=== PATIENT | male | born 1970 | race Caucasian/White ===

== ENCOUNTER 2016-11-06 12:29 | Emergency (ER) | payer OTHER ==
[2016-11-06 12:33] VITALS: RESP 16
[2016-11-06] MEDS ORDERED: KETOROLAC 30 MG/ML 1 ML VIAL IVP STA (13:48)
[2016-11-06] MEDS ORDERED: SODIUM CHLORIDE 0.9% 1,000 ML IV ONE (13:48)
[2016-11-06] MEDS ORDERED: MORPHINE SULFATE 4 MG/ML SYRINGE IVP STA (13:48)
[2016-11-06] MEDS ORDERED: ONDANSETRON 4 MG/2 ML VIAL IVP STA (13:48)
[2016-11-06 14:32] LABS: Basophils # (A) 0.2 k/uL (0-0.2); Basophils % (A) 1 %; CH 28.4; CHCM 32.8; Eosinophils # (A) 0.1 k/uL (0-0.7); Eosinophils % (A) 1 %; HCT 43.9 % (39.0-53.0); HDW 2.52; HGB 14.5 gm/dL (13.0-17.5); Luc # (Auto) 0.46; Luc % (Auto) 3; Lymphocytes # (A) 2.3 k/uL (1.0-4.8); Lymphocytes % (A) 14 %; MCH 28.7 pg (25.0-35.0); MCHC 32.9 g/dL (31.0-37.0); MCV 87.2 fL (80.0-100.0); Mean Platelet Volume 6.4; Monocytes # (A) 1.2 k/uL (0-1.0); Monocytes % (A) 7 %; Neutrophils # (A) 12.4 k/uL (1.3-7.7); Neutrophils % (A) 75 %; RBC 5.04 m/uL (4.30-5.90); RDW 13.7 % (11.5-15.5); WBC 16.6 k/uL (3.8-10.6); WBC (Perox) 16.12
[2016-11-06 14:40] LABS: Anion Gap 11 mmol/L; Blood Urea Nitrogen 11 mg/dL (9-20); Calcium 9.7 mg/dL (8.4-10.2); Carbon Dioxide 26 mmol/L (22-30); Chloride 103 mmol/L (98-107); Glucose 95 mg/dL (74-99); Non-African American GFR(MDRD) >60 (>60 ml/min/1.73 sqM); Potassium 4.7 mmol/L (3.5-5.1); Sodium 140 mmol/L (137-145)
--- NOTE | 2016-11-06 14:42 | CT ---
EXAMINATION TYPE: CT abdomen pelvis wo con DATE OF EXAM: 11/06/2016 2:31 PM COMPARISON: NONE HISTORY: Right flank pain, history of kidney stones CT DLP: 1215 mGycm Automated exposure control for dose reduction was used. TECHNIQUE: Helical acquisition of images from the lung bases through the pelvis. FINDINGS: LUNG BASES: No significant abnormality is appreciated. AORTA: No significant abnormality is appreciated. LIVER/GB: No significant abnormality is appreciated. PANCREAS: No significant abnormality is seen. SPLEEN: No significant abnormality is seen. ADRENALS: No significant abnormality is seen. KIDNEYS: The right kidney shows hydronephrosis, there is perinephric stranding. Mild right-sided hydr oureter is present. At the mid ureter there is a 2 to 3 mm calculus present. Left kidney is within no rmal limits. REPRODUCTIVE ORGANS: Some prostatic calcifications are present. URINARY BLADDER: Contracted BOWEL: Diverticular changes associated with the sigmoid colon. The appendix is normal. No bowel obst ruction. FREE AIR: No Free Air is visible. ASCITES: None visible. PELVIC ADENOPATHY: None visualized. RETROPERITONEAL ADENOPATHY: No Retroperitoneal Adenopathy visible. OSSEOUS STRUCTURES: No significant abnormality is seen. IMPRESSION: MID URETERAL CALCULUS ON THE RIGHT WITH HYDRONEPHROSIS. DIVERTICULOSIS. NONCONTRAST EXAM COULD LIMIT SENSITIVITY.
[2016-11-06 14:49] LABS: Appearance,Urine Clear (Clear); Bilirubin,Urine Negative (Negative); Calcium Oxalate Crystals,Urine Rare /hpf; Glucose,Urine (UA) Negative (Negative); Ketones,Urine Negative (Negative); Leukocyte Esterase,Urine Negative (Negative); Mucus,Urine Occasional /hpf; Nitrite,Urine Negative (Negative); Particle Count 2092; Protein,Urine Negative (Negative); RBC,Urine >182 /hpf (0-5); Specific Gravity,Urine 1.011 (1.001-1.035); UA Billing (MACRO vs. MICRO) MICRO; Urobilinogen,Urine <2.0 mg/dL (<2.0); WBC,Urine 1 /hpf (0-5)
--- NOTE | 2016-11-06 15:18 | ED ---
General Adult HPI - General Chief complaint: Back Pain/Injury Stated complaint: kidney Stone Time Seen by Provider: 11/06/16 13:37 Source: patient, family, RN notes reviewed Mode of arrival: ambulatory Limitations: no limitations - History of Present Illness Initial comments: 46-year-old male with history of renal stones presenting for right flank pain. Patient states pain began earlier today with sudden onset. He states the pain seems to be radiating from his right flank down to his right groin. States he last had a kidney stone about 11 or 12 years ago. He did require stenting and lithotripsy at that time. He denies any fevers or chills. He denies any other abdominal pain. He denies any nausea or vomiting. He denies dysuria or hematuria at this time. Onset/Timin -: hour(s) Quality: stabbing Consistency: constant Improves with: none Worsens with: none Treatments Prior to Arrival: none - Related Data Home Medications Medication Instructions Recorded Confirmed Doxylamine Succinate [Unisom] 25 mg PO DAILY PRN 11/06/16 11/06/16 Ibuprofen [Motrin] 600 mg PO DAILY PRN 11/06/16 11/06/16 Multivitamins, Thera [Multivitamin 1 tab PO DAILY 11/06/16 11/06/16 (formulary)] Previous Rx's Medication Instructions Recorded Ciprofloxacin HCl [Cipro] 500 mg PO Q12HR #6 tablet 11/06/16 HYDROcodone/APAP 5-325MG [[place]win 1 tab PO Q6HR PRN #12 tab 11/06/16 5-325] Ibuprofen [Motrin] 800 mg PO Q8HR PRN #21 tab 11/06/16 Ondansetron Odt [Zofran Odt] 4 mg PO Q8HR PRN #12 tab 11/06/16 Tamsulosin HCl [Flomax] 0.4 mg PO DAILY #7 cap.er.24h 11/06/16 Allergies Allergy/AdvReac Type Severity Reaction Status Date / Time latex Allergy Rash/Hives Verified 11/06/16 14:02 Review of Systems ROS Statement: Those systems with pertinent positive or pertinent negative responses have been documented in the HPI. ROS Other: All systems not noted in ROS Statement are negative. Past Medical History Additional Past Medical History / Comment(s): kidney stones History of Any Multi-Drug Resistant Organisms: None Reported Additional Past Surgical History / Comment(s): lithotripsy Past Psychological History: No Psychological Hx Reported Smoking Status: Never smoker Past Alcohol Use History: Occasional Past Drug Use History: None Reported General Exam - General Exam Comments Initial Comments: General: Awake and Alert. No acute distress. Does not appear acutely ill. Eyes: LISA, EOM intact. No nystagmus. No scleral icterus. HENT: Atraumatic, normocephalic. Mucous membranes moist. Trachea midline. Neck: The neck is supple, there is no tenderness or JVD. Cardiovascular: Regular rate and rhythm. No murmur, rub, or gallop is appreciated. Distal pulses intact. Respiratory: Lungs are clear to auscultation bilaterally. No wheezes, rales, rhonchi. No respiratory distress. Gastrointestinal: Soft, Nontender. No rebound or guarding. Non-distended. No masses or organomegaly noted. Right CVA tenderness. Musculoskeletal: No tenderness. Normal ROM. No gross deformity. No strength deficits. Neurological: A&Ox3. CN II-XII grossly intact, There are no obvious motor or sensory deficits. Coordination appears grossly intact. Speech is normal. Skin: Skin is warm and dry and no rashes or lesions are noted. Psychiatric: Cooperative, appropriate mood & affect, normal judgment. Limitations: no limitations Course Vital Signs 11/06/16 12:31 Temperature 97.6 F Pulse Rate 94 Respiratory 16 Rate Blood Pressure 143/87 O2 Sat by Pulse 96 Oximetry Medical Decision Making - Medical Decision Making 46-year-old male history of renal stones presented for right flank pain with radiation of the right groin. I work and CT imaging ordered. Started IVF and pain medications. CT ABD/Pelvis with right ureteral stone and hydro. Lab work with significant leukocytosis. BMP stable. Pt reevaluated states feeling much improved after medications. Updated on results and imaging. Discussed plan for treatment of current ureteral stone. Discussed given brief onset of symptoms this will likely pass on its own as it is a 2-3 mm stone. Rx for pain and nausea medications and as well as Flomax. Discussed prophylactic coverage and Cipro for possible infectious etiology given his elevated white count, although urine is not suspicious for infection this time. Discussed follow-up with urology. Given referral to Dr. Sullivan. Does follow-up with PCP. Discussed concerning signs symptoms immediate return to the ED. Patient and agreeable with plan and discharge home. - Lab Data Result diagrams: 11/06/16 14:12 11/06/16 14:12 Lab Results 11/06/16 11/06/16 11/06/16 Range/Units 14:12 14:12 14:12 WBC 16.6 H (3.8-10.6) k/uL RBC 5.04 (4.30-5.90) m/uL Hgb 14.5 (13.0-17.5) gm/dL Hct 43.9 (39.0-53.0) % MCV 87.2 (80.0-100.0) fL MCH 28.7 (25.0-35.0) pg MCHC 32.9 (31.0-37.0) g/dL RDW 13.7 (11.5-15.5) % Plt Count 360 (150-450) k/uL Neutrophils % 75 % Lymphocytes % 14 % Monocytes % 7 % Eosinophils % 1 % Basophils % 1 % Neutrophils # 12.4 H (1.3-7.7) k/uL Lymphocytes # 2.3 (1.0-4.8) k/uL Monocytes # 1.2 H (0-1.0) k/uL Eosinophils # 0.1 (0-0.7) k/uL Basophils # 0.2 (0-0.2) k/uL Sodium 140 (137-145) mmol/L Potassium 4.7 (3.5-5.1) mmol/L Chloride 103 (98-107) mmol/L Carbon Dioxide 26 (22-30) mmol/L Anion Gap 11 mmol/L BUN 11 (9-20) mg/dL Creatinine 0.95 (0.66-1.25) mg/dL Est GFR (MDRD) Af Amer >60 (>60 ml/min/1.73 sqM) Est GFR (MDRD) Non-Af >60 (>60 ml/min/1.73 sqM) Glucose 95 (74-99) mg/dL Calcium 9.7 (8.4-10.2) mg/dL Urine Color Yellow Urine Appearance Clear (Clear) Urine pH 6.0 (5.0-8.0) Ur Specific [place] 1.011 (1.001-1.035) Urine Protein Negative (Negative) Urine Glucose (UA) Negative (Negative) Urine Ketones Negative (Negative) Urine Blood Moderate H (Negative) Urine Nitrite Negative (Negative) Urine Bilirubin Negative (Negative) Urine Urobilinogen <2.0 (<2.0) mg/dL Ur Leukocyte Esterase Negative (Negative) Urine RBC >182 H (0-5) /hpf Urine WBC 1 (0-5) /hpf Calcium Oxalate Crystal Rare H (None) /hpf Urine Mucus Occasional H (None) /hpf - Radiology Data Radiology results: report reviewed, image reviewed Disposition Clinical Impression: Right ureteral stone, Renal colic Disposition: HOME SELF-CARE Condition: Stable Instructions: Renal Colic (ED) Prescriptions: Ciprofloxacin HCl [Cipro] 500 mg PO Q12HR #6 tablet HYDROcodone/APAP 5-325MG [Irwin 5-325] 1 tab PO Q6HR PRN #12 tab PRN Reason: Pain Ibuprofen [Motrin] 800 mg PO Q8HR PRN #21 tab PRN Reason: Pain Ondansetron Odt [Zofran Odt] 4 mg PO Q8HR PRN #12 tab PRN Reason: Nausea Tamsulosin HCl [Flomax] 0.4 mg PO DAILY #7 cap.er.24h Referrals: Oriana Weiss DO [Primary Care Provider] - 1-2 days Vickey Sullivan MD [STAFF PHYSICIAN] - 1-2 days Time of Disposition: 15:19
[2016-11-06 15:40] VITALS: BP 129/78; PULSE 80; TEMP 97.9
== END 2016-11-06 15:40 | disposition home or self-care (01) ==
LOC: EC 12:29
DX: N13.2 Hydronephrosis with renal and ureteral calculous obstruction (principal); N23 Unspecified renal colic; Z91.040 Latex allergy status; Z79.899 Other long term (current) drug therapy
CPT/HCPCS: 36415; 80048; 85025; 81001; 74176; 99284; 96374; 96375 ×2; 96361; J2270; J2405; J1885